=== PATIENT | female | born 1990 | race Caucasian/White ===

== ENCOUNTER 2021-06-12 05:31 | Emergency (ER) | payer SELFPAY ==
[~2021-06-12] VITALS: Ht 167.6 cm; Wt 131.5 kg
[2021-06-12 06:28] LABS: HEMOGLOBIN 11.3 gm/dl (12.3-15.3); RED BLOOD COUNT 4.7 M/UL (4.00-5.10); WHITE BLOOD COUNT 3.4 K/UL (4.5-11.0)
[2021-06-12 06:51] LABS: BUN/CREATININE RATIO 8 (0-10)
[2021-06-12] MEDS ORDERED: DECADRON6 MG PO (11:12)
== END 2021-06-12 12:06 | disposition home or self-care (01) ==
LOC: ER1 05:31
PROVIDERS: Family Medicine
DX: U07.1 COVID-19 (principal); Z90.49 Acquired absence of other specified parts of digestive tract
CPT/HCPCS: 71045; 80053; 83615; 85025; 86140; 99283; U0002